=== PATIENT | male | born 1955 ===

== ENCOUNTER 2021-05-09 06:00 | Outpatient (RCR) | payer MEDICARE, SELFPAY | END 2021-05-09 23:59 | disposition home or self-care (01) | LOC: MPT 06:00 | PROVIDERS: Referring Provider Nurse Practitioner Family; Visit Provider Nurse Practitioner Family | DX: M54.51 Vertebrogenic low back pain (principal); S32.010D Wedge compression fracture of first lumbar vertebra, subsequent encounter for fracture with routine healing; X58.XXXD Exposure to other specified factors, subsequent encounter | CPT/HCPCS: 97110; 97161; 97530 ==